=== PATIENT | male | born 1960 | race Two or more races ===

== ENCOUNTER 2024-03-05 12:44 | Inpatient (IN) | payer OTHER ==
[2024-03-05] MEDS ORDERED: NALOXONE 0.4 MG/ML 1 ML VIAL IV PRN (12:49)
[2024-03-05] MEDS: HEPARIN SODIUM 1,000 UN/ML (10ML VL) IV ONE ×2 (12:51→13:27)
[2024-03-05] MEDS: MORPHINE SULFATE 4 MG/ML SYRINGE IV STA (12:51)
[2024-03-05] MEDS: ONDANSETRON 4 MG/2 ML VIAL IVP STA (12:52)
--- NOTE | 2024-03-05 12:52 | ED ---
General Adult HPI - General Stated complaint: STEMI Time Seen by Provider: 03/05/24 12:45 Source: patient, EMS, RN notes reviewed, old records reviewed Limitations: no limitations - History of Present Illness Initial comments: 63yo male, presenting with prehospital EKG showing ST segment elevation in the inferior leads and and lateral precordial leads with ST segment depression. Prehospital activation of the [facility] was performed. The patient has previous history of IA and states that his pain is exactly the same. 10 out of 10 substernal pain and pressure. Patient has associated nausea vomiting. Review of Systems ROS Statement: Those systems with pertinent positive or pertinent negative responses have been documented in the HPI. ROS Other: All systems not noted in ROS Statement are negative. General Exam General appearance: in distress Head exam: Present: atraumatic, normocephalic Eye exam: Present: normal appearance, PERRL ENT exam: Present: normal exam Neck exam: Present: normal inspection. Absent: tenderness Respiratory exam: Present: normal lung sounds bilaterally, respiratory distress (tachypinic) Cardiovascular Exam: Present: regular rate, normal rhythm GI/Abdominal exam: Present: soft. Absent: distended, tenderness, guarding Extremities exam: Present: normal inspection, normal capillary refill Neurological exam: Present: alert Skin exam: Present: diaphoretic Medical Decision Making - Medical Decision Making Was pt. sent in by a medical professional or institution ([facility], [facility], urgent care, hospital, or intermediate...) When possible be specific @ -[No] Did you speak to anyone other than the patient for history (EMS, parent, family, police, friend...)? What history was obtained from this source @ -[No] Did you review nursing and triage notes (agree or disagree)? Why? @ -[I reviewed and agree with nursing and triage notes] Were old charts reviewed (outside hosp., previous admission, EMS record, old EKG, old radiological studies, urgent care reports/EKG's, intermediate records)? Report findings @ -[No old charts were reviewed] Differential Diagnosis (chest pain, altered mental status, abdominal pain women, abdominal pain men, vaginal bleeding, weakness, fever, dyspnea, syncope, headache, dizziness, GI bleed, back pain, seizure, CVA, palpatations, mental health, musculoskeletal)? @ -[not applicable] EKG interpreted by me (3pts min.). @EKG is showing a ventricular rate of 99, QRS duration 81, QTc 406 suspect underlying sinus rhythm with ST segment elevation consistent with acute IA. X-rays interpreted by me (1pt min.). @ -[None done] CT interpreted by me (1pt min.). @ -[None done] U/S interpreted by me (1pt. min.). @ -[None done] What testing was considered but not performed or refused? (CT, X-rays, U/S, labs)? Why? @ -[None] What meds were considered but not given or refused? Why? @ -[None] Did you discuss the management of the patient with other professionals (professionals i.e. DrClyde, PA, P[facility]/PULLER, lab, RT, psych nurse, director social welfare, furniture detailer, teacher, cash management officer, case worker)? Give summary @ -[No] Was smoking cessation discussed for >3mins.? @ -[No] Was critical care preformed (if so, how long)? @Yes, 35 minutes Were there social determinants of health that impacted care today? How? (Homelessness, low income, unemployed, alcoholism, drug addiction, transportation, low edu. Level, literacy, decrease access to med. care, senior living, rehab)? @ -[No] Was there de-escalation of care discussed even if they declined (Discuss DNR or withdrawal of care, Hospice)? DNR status @ -[No] What co-morbidities impacted this encounter? (DM, HTN, Smoking, COPD, CAD, Cancer, CVA, ARF, Chemo, Hep., AIDS, mental health diagnosis, sleep apnea, morbid obesity)? @CAD Was patient admitted / discharged? Hospital course, mention meds given and route, prescriptions, significant lab abnormalities, going to OR and other pertinent info. @63-year-old male with typical chest pain, ST segment elevated IA taken immediately to the [facility]. EKG, IV established. Patient given Lipitor, heparin, morphine. He had been given nitroglycerin and aspirin by paramedics. Taken immediately to the [facility] with Dr. Peace. Admitting Dr. Dr. Streeter. Undiagnosed new problem with uncertain prognosis? @ -[No] Drug Therapy requiring intensive monitoring for toxicity (Heparin, Nitro, Insulin, Cardizem)? @ -[No] Were any procedures done? @ -[No] Diagnosis/symptom? @ -STEMI Acute, or Chronic, or Acute on Chronic? @Acute Uncomplicated (without systemic symptoms) or Complicated (systemic symptoms)? @ -[default] Side effects of treatment? @ -[No] Exacerbation, Progression, or Severe Exacerbation? @ -[No] Poses a threat to life or bodily function? How? (Chest pain, USA, IA, pneumonia, PE, COPD, DKA, ARF, appy, cholecystitis, CVA, Diverticulitis, Homicidal, Suicidal, threat to staff... and all critical care pts) @ -[yes, STEMI with cardiogenic shock, ventricular arrhythmia Disposition Clinical Impression: STEMI (ST elevation myocardial infarction) Disposition: ADMITTED IP TO THIS HOSP Condition: Serious Is patient prescribed a controlled substance at d/c from ED?: No Referrals: None,Stated [Primary Care Provider] - 1-2 days
[2024-03-05] MEDS: ATORVASTATIN 80 MG TAB PO STA (13:01)
[2024-03-05] MEDS ORDERED: HEPARIN SODIUM 1,000 UN/ML (10ML VL) ONE (13:07)
[2024-03-05] MEDS ORDERED: fentaNYL (PF) 50 MCG/ML 2 ML AMP ONE (13:07)
[2024-03-05] MEDS: LIDOCAINE 1% INJ 10MG/ML (20 ML MDV) SQ ONE (13:10)
[2024-03-05] MEDS: SODIUM CHLORIDE 0.9% 500 ML 500 ML IV ONE (13:10)
[2024-03-05] MEDS: MIDAZOLAM 2 MG/2 ML VIAL IVP ONE (13:13)
[2024-03-05] MEDS: fentaNYL (PF) 50 MCG/ML 2 ML AMP IVP ONE (13:13)
[2024-03-05] MEDS ORDERED: TICAGRELOR 90 MG TAB ONE (13:22)
[2024-03-05] MEDS: TICAGRELOR 90 MG TAB PO ONE (13:25)
--- NOTE | 2024-03-05 13:49 | CC ---
CARDIAC CATHETERIZATION REPORT INDICATIONS: Acute inferior wall myocardial infarction. PROCEDURE NOTE: After obtaining informed consent, left heart catheterization, coronary angiogram are performed via the right femoral artery using standard Ayo catheters. The patient tolerated the procedure well without any obvious immediate complications. The patient received moderate conscious sedation. Total sedation time was 11 minutes. FINDINGS: 1. Hemodynamics: Left ventricular end-diastolic pressure is 28 to 30 mm. There is no significant gradient across the aortic valve. 2. Left Ventriculogram: Left ventriculogram was not performed. 3. Angiographic Data: a.Right coronary artery was engaged subselectively. There is mild nonobstructive disease noted proximally. Permit Specialist was going to obtain more selective images. Left main coronary artery is a normal-sized vessel and is free of stenosis. Divides into left anterior descending coronary artery and circumflex coronary arteries. LAD was previously stented extensively and the stents appear patent. Circumflex coronary artery is a large dominant vessel and gives off a large caliber OM branch that shows a 95% stenosis at its ostium, which is probably the vessel related to the acute inferoposterior wall myocardial infarction. CONCLUSIONS: Patent stent within the LAD, 95% stenosis involving the ostial portion of the OM branch. PLAN: The patient will undergo angioplasty with stent placement of the same by Dr. Rosario, the on-call machine adjuster leader case trim. MMODL / IJN: [id number] /
--- NOTE | 2024-03-05 13:53 | P.CRDCN ---
History of Present Illness History of present illness: HISTORY OF PRESENT ILLNESS: This is a 63-year-old male with a past medical history significant for coronary artery disease with previous stenting x 4, hypertension, hyperlipidemia, and borderline diabetes. Patient follows with a telecommunication tower technician in [place]. We have been asked to see the patient in consultation for STEMI. Patient examined at the bedside in the emergency room. Patient was brought to the hospital via EMS with a chief complaint of chest pain. The patient reports midsternal chest pain with radiation down his left arm. He also reports nausea and is having episodes of emesis during examination. He continues to report his pain /. The patient does report he has a history of stenting back in 2017. He states he had 2 stents placed at that time and then 2 weeks later he required an additional 2 stents to be placed. He does report that he had a cardiac catheterization performed last year but he did not require any intervention at that time. He is a non-smoker. EKG revealed ST elevation in inferior lateral leads with reciprocal changes. REVIEW OF SYSTEMS: At the time of my exam: CONSTITUTIONAL: Denies fever or chills. HEENT: Denies blurred vision, vision changes, or eye pain. Denies hemoptysis CARDIOVASCULAR: Denies chest pain. Denies orthopnea. Denies PND. Denies palpitations RESPIRATORY: Denies shortness of breath. GASTROINTESTINAL: Denies abdominal pain. Denies nausea or vomiting. HEMATOLOGIC: Denies bleeding disorders. GENITOURINARY: Denies any blood in urine. SKIN: Denies pruitis. Denies rash. PHYSICAL EXAM: VITAL SIGNS: Reviewed. GENERAL: Well-developed in no acute distress. HEENT: Head is normocephalic. Pupils are equal, round. Sclerae anicteric. Mucous membranes of the mouth are moist. Neck supple. No JVD or thyromegaly LUNGS: Respirations even and unlabored. Lungs essentially clear to auscultation bilaterally. HEART: Regular rate and rhythm. S1 and S2 heard. ABDOMEN: Soft. Nondistended. Nontender. EXTREMITIES: Normal range of motion. No clubbing or cyanosis. Peripheral pulses intact. No lower extremity edema NEUROLOGIC: Awake and alert. Oriented x 3. ASSESSMENT: Inferolateral STEMI Coronary artery disease with previous stenting x 4, most recently in 2017 Hypertension Hyperlipidemia Borderline diabetes, per patient PLAN: Patient given aspirin and heparin in the ER. Refused oral lipitor. Patients EKG with ST elevations in inferior lateral leads Recommend urgent cardiac catheterization. Patient is agreeable. Patient taken to the lab systems analyst in stable condition Obtain 2D echo post cardiac cath Patient started on aspirin, lipitor, losartan, and metoprolol Obtain lipid panel and hemoglobin A1c Further recommendations pending patient course Nurse practitioner note has been reviewed by physician. Signing provider agrees with the documented findings, assessment, and plan of care documented by LAWN SERVICE WORKER as a scribe. Past Medical History Additional Past Medical History / Comment(s): [place] History of Any Multi-Drug Resistant Organisms: None Reported Past Surgical History: Heart Catheterization With Stent Past Psychological History: No Psychological Hx Reported Smoking Status: Unknown if ever smoked Past Alcohol Use History: Unable to Obtain Past Drug Use History: Unable to Obtain Medications and Allergies Allergies Allergy/AdvReac Type Severity Reaction Status Date / Time acetaminophen [From Vicodin] AdvReac Unknown Verified 03/05/24 12:54 hydrocodone [From Vicodin] AdvReac Unknown Verified 03/05/24 12:54 Physical Exam Vitals: Vital Signs Temp Pulse Resp BP Pulse Ox 03/05/24 12:46 97.7 F 104 H 36 H 181/125 99 Intake and Output 03/04/24 03/05/24 03/05/24 22:59 06:59 14:59 Other: Weight 81.42 kg Results Current Medications Generic Name Dose Route Start Last Admin Trade Name Freq PRN Reason Stop Dose Admin Naloxone HCl 0.2 mg 03/05/24 12:49 Naloxone 0.4 Mg/Ml 1 Ml Vial IV Q2M PRN Opioid Reversal Intake and Output 03/04/24 03/05/24 03/05/24 22:59 06:59 14:59 Other: Weight 81.42 kg Patient Weight 03/06/24 06:59 Weight 81.42 kg
[2024-03-05] MEDS: HEPARIN SODIUM 1,000 UN/ML (10ML VL) IVP ONE (13:54)
--- NOTE | 2024-03-05 15:41 | P.HPIM ---
History of Present Illness 63-year-old male with history of coronary disease stents in the past came in with severe nausea vomiting 10 x 10 chest pain pressure-like sensation and patient is found to have ST elevations in the inferior lateral leads in the circumflex territory. Patient was taken to [facility] immediately. I evaluate the patient before he went to [facility] patient has severe nausea vomiting. Patient does have reciprocal changes in leads V1 to V4. REVIEW OF SYSTEMS: All other systems are negative except those mentioned in the HPI PHYSICAL EXAMINATION: GENERAL: The patient is alert and oriented x3, patient is in significant distress from about vomiting and chest pain well developed, well nourished. HEENT: Pupils are round and equally reacting to light. EOMI. No scleral icterus. No conjunctival pallor. Normocephalic, atraumatic. No pharyngeal erythema. No thyromegaly. CARDIOVASCULAR: S1 and S2 present. No murmurs, rubs, or gallops. PULMONARY: Chest is clear to auscultation, no wheezing or crackles. ABDOMEN: Soft, nontender, nondistended, normoactive bowel sounds. No palpable organomegaly. MUSCULOSKELETAL: No joint swelling or deformity. EXTREMITIES: No cyanosis, clubbing, or pedal edema. NEUROLOGICAL: Gross neurological examination did not reveal any focal deficits. SKIN: No rashes. Assessment and plan -Inferolateral ST elevation myocardial infarction: Patient was heparinized and is going for [facility] patient will be on beta-giacomo, statins -Coronary disease with stents in the past -Hyperlipidemia -Hypertension -Borderline diabetes mellitus will obtain hemoglobin A1c DVT prophylaxis: On heparin and antiplatelet medications at this time Past Medical History Additional Past Medical History / Comment(s): [place] History of Any Multi-Drug Resistant Organisms: None Reported Past Surgical History: Heart Catheterization With Stent Past Psychological History: No Psychological Hx Reported Smoking Status: Unknown if ever smoked Past Alcohol Use History: Unable to Obtain Past Drug Use History: Unable to Obtain Medications and Allergies Allergies Allergy/AdvReac Type Severity Reaction Status Date / Time acetaminophen [From Vicodin] AdvReac Unknown Verified 03/05/24 12:54 hydrocodone [From Vicodin] AdvReac Unknown Verified 03/05/24 12:54 Physical Exam Vitals: Vital Signs Temp Pulse Resp BP Pulse Ox 03/05/24 12:46 97.7 F 104 H 36 H 181/125 99 Intake and Output 03/05/24 03/05/2403/05/24 06:59 14:59 22:59 Other: Weight 81.42 kg
[2024-03-05] MEDS ORDERED: NITROGLYCERIN SL TABS 0.4 MG TAB SUBLINGUAL PRN (15:42)
[2024-03-05] MEDS ORDERED: ATROPINE SULFATE 0.1 MG/ML 10ML SYRINGE IV PRN (15:42)
[2024-03-05] MEDS ORDERED: MAG HYDROX/AL HYDROX/SIMETH 30 ML CUP PO PRN (15:42)
[2024-03-05] MEDS ORDERED: RX INFO: IV CONTRAST WAS GIVEN 1 EACH MISC MISCELLANE PRN (15:42)
--- NOTE | 2024-03-05 15:42 | P.PRCINT ---
Percutaneous Coronary Int. - Percutaneous Coronary Intervention Percutaneous Coronary Intervention: PROCEDURES PERFORMED: Left coronary angiography, PTCA mid circumflex into OM1 with a 4.0 NC balloon, Penumbra aspiration thrombectomy of circumflex, IVUS circumflex INDICATION: STEMI CONSENT:I have discussed the risks, benefits and alternative therapies for the above-mentioned procedure and for both sedation/analgesia as well as necessary blood product administration, if indicated, as they pertain to this patient. The patient has indicated understanding and acceptance of the risks and procedures discussed. PROCEDURE: After the risks, benefits and alternatives of the above mentioned procedure explained in detail with the patient, informed consent was obtained. Patient was taken to the catheterization lab and prepped and draped in usual fashion. A 6Fr sheath had previously been placed in the right femoral artery. Diagnostic images were obtained. The decision was made to perform PCI of the circumflex. Heparin was given. A 6FR CLS 3.5 guide was used to engage the left main. A 0.014 BMW wire was advanced into the distal OM1 branch. There was thrombus noted in the proximal portion of the stent and therefore Penumbra aspiration thrombectomy was performed for 2 passes with much improvement in flow. IVUS showed well expanded stent other than the proximal edge of the stent being mildly underexpanded. On further discussion with patient, he has not been taking any of his medications including any antiplatelet and instent thrombosis appears mainly related to medical noncompliance. The proximal portion of the stent was however post expanded with a 4.0 NC balloon. Final angiograms were performed. Pre intervention there was 99% stenosis and GENESIS 1 flow and post intervention there was GENESIS 3 flow with < 10% stenosis. The femoral angiogram showed low stick and therefore sheath left in place to be pulled at a later time. The patient tolerated the procedure well. Patient was transported back to the post catheterization holding area in stable condition. Conscious Sedation: Patient was monitored under the direct supervision of myself for conscious sedation using Versed and fentanyl for a total duration of 42 minutes HEMODYNAMICS: Ao: 123/81 SELECTIVE CORONARY ARTERIOGRAPHY: LEFT MAIN: The left main is a large caliber vessel which bifurcates into the LAD and circumflex. There is no significant stenosis. LEFT ANTERIOR DESCENDING CORONARY ARTERY: LAD is a large caliber vessel which wraps around to the apex. There is a long area of stent with mild 20-30% stenosis. LEFT CIRCUMFLEX CORONARY ARTERY: Left circumflex is a large caliber vessel with a proximal circumflex stent extending into a large caliber OM1 branch. A smaller OM2 branch is jailed across the stent however without any significant impingement. There is a 99% stenosis just after OM2 in the previously placed stent.. RIGHT CORONARY ARTERY: See diagnostic report FINAL IMPRESSION: 1. CAD as described above including 99% mid circumflex stenosis 2. S/p PTCA mid circumflex into OM1 with a 4.0 NC balloon, Penumbra aspiration thrombectomy of circumflex 3. Instent thrombosis most likely related to medication noncompliance, not taking any antiplatelets PLAN: 1. Aggressive risk factor modification per most recent ACC/AHA guidelines. 2. Continue dual antiplatelets with aspirin and Brillinta for 12 months.
[2024-03-05 16:35] LABS: Basophils # (A) 0.1 k/uL (0-0.2); Basophils % (A) 1 %; Eosinophils # (A) 0.1 k/uL (0-0.7); Eosinophils % (A) 1 %; HCT 49.2 % (39.0-53.0); HGB 16.9 gm/dL (13.0-17.5); Lymphocytes # (A) 0.7 k/uL (1.0-4.8); Lymphocytes % (A) 7 %; MCH 30.6 pg (25.0-35.0); MCHC 34.4 g/dL (31.0-37.0); MCV 89.1 fL (80.0-100.0); Mean Platelet Volume 7.8; Monocytes # (A) 0.5 k/uL (0-1.0); Monocytes % (A) 5 %; Neutrophils # (A) 8.1 k/uL (1.3-7.7); Neutrophils % (A) 84 %; Platelet Count 212 k/uL (150-450); RBC 5.52 m/uL (4.30-5.90); RDW 13.4 % (11.5-15.5); WBC 9.7 k/uL (3.8-10.6)
[2024-03-05 16:36] LABS: INR 1.1 (<1.2); Prothrombin Time 11.8 sec (10.0-12.5)
[2024-03-05 16:43] LABS: Partial Thromboplastin Time 139.2 sec (22.0-30.0)
[2024-03-05 17:36] LABS: ALT 49 U/L (4-49); AST 55 U/L (17-59); African American GFR (CKD) >90 (>60 ml/min/1.73 sqM); Alkaline Phosphatase 81 U/L (38-126); Anion Gap 7 mmol/L; Blood Urea Nitrogen 19 mg/dL (9-20); Calcium 8.9 mg/dL (8.4-10.2); Carbon Dioxide 23 mmol/L (22-30); Chloride 104 mmol/L (98-107); Glucose 231 mg/dL (74-99); Magnesium 2.1 mg/dL (1.6-2.3); Non-African American GFR(CKD) 82 (>60 ml/min/1.73 sqM); Potassium 4.7 mmol/L (3.5-5.1); Sodium 134 mmol/L (137-145); Total Protein 6.6 g/dL (6.3-8.2)
[2024-03-05] MEDS: SODIUM CHLORIDE 0.9% 1,000 ML in EMPTY BAG 1 BAG IV SCH (17:45)
[2024-03-05] MEDS: hydrALAZINE HCL 20 MG/ML 1 ML VIAL IVP STA (18:23)
[2024-03-05 19:58] LABS: Glucose,Whole Blood 160 mg/dL (70-110)
--- NOTE | 2024-03-05 20:19 | CT ---
EXAMINATION TYPE: CODE STROKE: CT brain wo contr CT DLP: 1138.9 mGycm, Automated exposure control for dose reduction was used. DATE OF EXAM: 03/05/2024 8:01 PM COMPARISON: None.. CLINICAL INDICATION:Male, 63 years old with history of Neuro deficit, acute, stroke suspected, Neuro deficit, acute, stroke suspected. aphagia and rt sided weakness pt was stemi earlier in the day. TECHNIQUE: Brain: Axial CT images of the brain were obtained with coronal and sagittal reformats created and rev iewed. Contrast used: None. Oral contrast used: None. FINDINGS: Extra-axial spaces: No abnormal extra-axial fluid collections. Basilar cisterns are patent. Ventricular system: Ventricles appear dilated in proportion to the degree of cerebral atrophy. Cerebral parenchyma: No increased attenuation to suggest acute intraparenchymal hemorrhage. The gra y-white matter interface appears maintained. Mild generalized brain atrophy. Scattered hypoattenuat ing areas are seen within the cerebral white matter, nonspecific but most often seen with chronic jac rovascular ischemic changes; mild in degree. Cerebellum: No acute abnormality. Mass effect: No evidence of mass effect or midline shift. Intracranial vasculature: Atherosclerotic mild calcifications of the larger arteries near the skull b ase. Soft tissues: No acute or concerning abnormality. Visualized orbits: Orbital contents appear grossly intact. Calvarium/osseous structures: No evidence of calvarial fracture. Paranasal sinuses and mastoid air cells: Mild scattered paranasal sinus mucosal thickening. MRI is more sensitive for detecting acute processes such as infarct, and may be considered if clinica lly warranted. IMPRESSION: No acute intracranial CT abnormality.
--- NOTE | 2024-03-05 21:06 | CT ---
EXAMINATION TYPE: CODE STROKE: CTA head neck DATE OF EXAM: 03/05/2024 8:21 PM COMPARISON: Immediately prior CT brain. CLINICAL INDICATION:Male, 63 years old with history of Neuro deficit, acute, stroke suspected; PHH, N euro deficit, acute, stroke suspected. aphagia and rt sided weakness pt was stemi earlier in the day. TECHNIQUE: Axially acquired helical CT angiogram of the head and neck was obtained with contrast. Axi al images are supplemented with 3D reconstructions which [facility] NASCET criteria used. Contrast used: 65ml mL of Isovue 370 with IV Contrast, Oral contrast used: None. CT DLP: 694.4 mGycm, Automated exposure control for dose reduction was used. FINDINGS: CTA Neck: Aortic arch is patent without significant atherosclerotic disease or dissection. There is a bovine ar ch configuration. Mild atherosclerotic calcification in the trunk and proximal left common carotid wi thout significant stenosis. Both CCAs appear patent. There is mild mostly calcified atherosclerotic plaque at the carotid bifurca tions/proximal ICAs, without significant stenosis. Right ICA is then normally patent to the skull bas e. Proximal to mid left ICA demonstrates focal calcific plaque with approximately 30% diameter stenos is. Vessel is then patent to the skull base. Origins of the vertebral arteries show no significant disease or stenosis. Left vertebral artery is d ominant. Both appear normally patent to the skull base. Other: No acute soft tissue neck abnormality. Left thyroid lobe not seen, may be resected. Mild degen erative changes of the cervical spine, greatest at C5-C6 where disc marginal osteophytes cause mild-t o-moderate canal and neural foraminal stenoses. An acute osseous abnormality is not identified. Included lung apices show no acute abnormality. CTA Head: Intracranial vertebral arteries are patent. Cerebellar arteries are grossly unremarkable as seen. Bas ilar artery is normal in course and caliber. Basilar bifurcation is patent and there is no evidence o f basilar tip aneurysm. Visualized proximal tow boat captain are patent. There seems to be a posterior communicat ing artery on the left. There are some calcifications of the cavernous portions of the ICAs without significant stenosis. Supraclinoid ICAs, bifurcations, ACAs, MCAs appear patent. Anterior communicating artery appears pres ent without regional aneurysm. The left HAKAN appears relatively smaller than the right. No intracranial large vessel occlusion, hemodynamically significant stenosis, aneurysm, dissection, o r arteriovenous malformation is shown. The dural venous sinuses appear grossly patent without evidence of thrombosis. Other: Please refer to same-day CT head report.. IMPRESSION: CTA neck: * Patent neck CTA. * Mild atherosclerotic disease at the carotid bifurcations/proximal ICAs, without hemodynamically si gnificant stenosis. * No evidence of dissection or pseudoaneurysm CTA head: * Patent head CTA. * No intracranial large vessel occlusion, significant stenosis, or sizable aneurysm detected in the limits of CTA.
[2024-03-05] MEDS: ATORVASTATIN 80 MG TAB PO SCH (21:16)
[2024-03-05] MEDS: METOPROLOL TARTRATE 25 MG TAB PO SCH (21:16)
[2024-03-05] MEDS: TICAGRELOR 90 MG TAB PO SCH (21:16)
[2024-03-05] MEDS: ZOLPIDEM 5 MG TAB PO PRN (21:16)
[2024-03-06 03:25] LABS: Chol/HDL Ratio 4.26 Ratio; LDL Cholesterol,Calculated 176.2 mg/dL (0.0-131.0)
[2024-03-06 04:58] LABS: Basophils # (A) 0.1 k/uL (0-0.2); Basophils % (A) 1 %; Eosinophils # (A) 0.1 k/uL (0-0.7); Eosinophils % (A) 2 %; HCT 49.1 % (39.0-53.0); Lymphocytes # (A) 0.9 k/uL (1.0-4.8); Lymphocytes % (A) 12 %; MCH 29.8 pg (25.0-35.0); MCHC 32.6 g/dL (31.0-37.0); MCV 91.4 fL (80.0-100.0); Mean Platelet Volume 7.6; Monocytes # (A) 0.6 k/uL (0-1.0); Monocytes % (A) 8 %; Neutrophils # (A) 5.5 k/uL (1.3-7.7); Neutrophils % (A) 75 %; Platelet Count 202 k/uL (150-450); RBC 5.37 m/uL (4.30-5.90); RDW 13.4 % (11.5-15.5); WBC 7.3 k/uL (3.8-10.6)
[2024-03-06 05:14] LABS: African American GFR (CKD) >90 (>60 ml/min/1.73 sqM); Anion Gap 6 mmol/L; Blood Urea Nitrogen 15 mg/dL (9-20); Carbon Dioxide 19 mmol/L (22-30); Chloride 109 mmol/L (98-107); Glucose 159 mg/dL (74-99); Non-African American GFR(CKD) >90 (>60 ml/min/1.73 sqM); Potassium 4.3 mmol/L (3.5-5.1); Sodium 134 mmol/L (137-145)
[2024-03-06] MEDS: LOSARTAN 25 MG TAB PO SCH (09:24)
[2024-03-06] MEDS: ASPIRIN 81 MG PO SCH (09:24)
--- NOTE | 2024-03-06 09:54 | CA ---
Transthoracic Echo Report Name: Randy Brasher Age: 63 Gender: M : 1960 Exam Date: 03/05/2024 15:09 Exam Location: [facility] Ht (in): 67 Wt (lb): 179 Ordering Physician: Kalie Coronado Attending/Referring Phys: [id number], [facility] Shani Mota RDCS Procedure CPT: Indications: stemi Cardiac Hx: Technical Quality: Technically difficult study Contrast 1: Definity Total Dose (mL): 2 Contrast 2: Total Dose (mL): MEASUREMENTS (Male / Female) Normal Values 2D ECHO LV Diastolic Volume MOD BP 75.2 cm??? 67 - 155 / 56 - 104 cm??? LV Systolic Volume MOD BP 30.9 cm??? 22 - 58 / 19 - 49 cm??? LV Ejection Fraction MOD BP 58.9 % >= 55 % LV Cardiac Index MOD BP 1748.8 cm???/min???m??? LV Diastolic Volume MOD 4C 76.7 cm??? LV Systolic Volume MOD 4C 33.1 cm??? LV Ejection Fraction MOD 4C 56.9 % LV Cardiac Index MOD 4C 1719.7 cm???/min???m??? LV Diastolic Length 4C 8.1 cm LV Systolic Length 4C 7.3 cm LV Diastolic Volume MOD 2C 70.8 cm??? LV Systolic Volume MOD 2C 28.0 cm??? LV Ejection Fraction MOD 2C 60.4 % LV Cardiac Index MOD 2C 1686.8 cm???/min???m??? LV Diastolic Length 2C 8.4 cm LV Systolic Length 2C 7.1 cm LA Volume 26.7 cm??? 18 - 58 / 22 - 52 cm??? LA Volume Index 13.5 cm???/m??? 16 - 28 cm???/m??? DOPPLER AV Peak Velocity 108.3 cm/s AV Peak Gradient 4.7 mmHg AV Mean Velocity 78.5 cm/s AV Mean Gradient 2.7 mmHg AV Velocity Time Integral 21.4 cm LVOT Peak Velocity 94.7 cm/s LVOT Peak Gradient 3.6 mmHg LVOT Velocity Time Integral 16.4 cm MV Area PHT 2.8 cm??? Mitral E Point Velocity 53.3 cm/s Mitral A Point Velocity 65.4 cm/s Mitral E to A Ratio 0.8 MV Deceleration Time 269.9 ms FINDINGS Left Ventricle Left ventricular ejection fraction is estimated at 55-60 %. Left ventricular cavity size normal. Left ventricular wall thickness normal. No obvious regional wall motion abnormalities. Right Ventricle Right ventricle not well visualized. Right Atrium Right atrium not well visualized. Left Atrium Left atrium not well visualized. Mitral Valve Structurally normal mitral valve. No mitral stenosis, regurgitation or prolapse. Aortic Valve Aortic valve not well visualized. No aortic valve stenosis or regurgitation. Tricuspid Valve Structurally normal tricuspid valve. No tricuspid stenosis. No tricuspid regurgitation. Pulmonic Valve Pulmonic valve not well visualized. Pericardium No pericardial effusion. Aorta Aortic root and proximal ascending aorta not well visualized. CONCLUSIONS Left ventricular ejection fraction 55-60% No mitral regurgitation No tricuspid regurgitation No pericardial effusion Previewed by: Dr. Cem Rosario DO (Electronically Signed) Final Date: 06 March 2024 09:52
--- NOTE | 2024-03-06 13:36 | P.PN ---
Subjective March 06, 2024 Patient underwent cardiac catheterization found to have stenosis of circumflex 99% which was stented and patient also has in-stent stenosis due to noncompliance with his medications. Extensive counseling was again provided regarding this a code stroke was called although there is no focal neurological deficits anyway patient underwent a stroke workup with CT of the head and CT angio of the head and neck and there is no evidence of stroke at that time. Patient is mildly hyponatremic echocardiogram is being obtained. Patient does not have any chest pain at this time March 07, 2024 63-year-old male with history of coronary disease stents in the past came in with severe nausea vomiting 10 x 10 chest pain pressure-like sensation and patient is found to have ST elevations in the inferior lateral leads in the circumflex territory. Patient was taken to [facility] immediately. I evaluate the patient before he went to [facility] patient has severe nausea vomiting. Patient does have reciprocal changes in leads V1 to V4. REVIEW OF SYSTEMS: All other systems are negative except those mentioned in the HPI PHYSICAL EXAMINATION: GENERAL: The patient is alert and oriented x3, patient is in significant distress from about vomiting and chest pain well developed, well nourished. HEENT: Pupils are round and equally reacting to light. EOMI. No scleral icterus. No conjunctival pallor. Normocephalic, atraumatic. No pharyngeal erythema. No thyromegaly. CARDIOVASCULAR: S1 and S2 present. No murmurs, rubs, or gallops. PULMONARY: Chest is clear to auscultation, no wheezing or crackles. ABDOMEN: Soft, nontender, nondistended, normoactive bowel sounds. No palpable organomegaly. MUSCULOSKELETAL: No joint swelling or deformity. EXTREMITIES: No cyanosis, clubbing, or pedal edema. NEUROLOGICAL: Gross neurological examination did not reveal any focal deficits. SKIN: No rashes. Assessment and plan -Inferolateral ST elevation myocardial infarction: Status post PTCA circumflex and there is in-stent stenosis counseling regarding compliance with medications was provided. Patient is otherwise clinically doing well -Code stroke, CVA ruled out no evidence of CVA -Coronary disease with stents in the past -Hyperlipidemia -Hypertension -Borderline diabetes mellitus hemoglobin A1c is 10 patient will be started on metformin may benefit from Jardiance DVT prophylaxis: On heparin and antiplatelet, Objective - Vital Signs Vital signs: Vital Signs Temp 98.0 F 03/06/24 08:00 Pulse 70 03/06/24 09:00 Resp 20 03/06/24 09:00 BP 113/75 03/06/24 09:00 Pulse Ox 100 03/06/24 09:00 FiO2 Intake & Output 03/05/24 03/06/24 03/06/24 18:59 06:59 18:59 Intake Total 542 1410 80 Output Total 600 2150 Balance -58 -740 80 Weight 81.42 kg 87.3 kg Intake: IV 320 960 80 Sodium Chloride 0.9% 1, 320 960 80 000 ml In Empty Bag 1 bag @ 1 ML/KG/HR 81.42 mls/ hr IV .[id number] [facility] Rx#: [id number] Oral 222 450 Output: Urine 600 2150 Other: Voiding Method Urinal Urinal Toilet # Voids 0 0 1 ABP, PAP, CO, CI - Last Documented Arterial Blood Pressure 169/94 - Labs CBC & Chem 7: 03/06/24 04:17 03/06/24 04:17 Labs: Abnormal Lab Results - Last 24 Hours (Table) 03/05/24 03/05/24 03/05/24 Range/Units 16:10 16:10 16:10 Neutrophils # 8.1 H (1.3-7.7) k/uL Lymphocytes # 0.7 L (1.0-4.8) k/uL APTT 139.2 H* (22.0-30.0) sec Sodium 134 L (137-145) mmol/L Chloride (98-107) mmol/L Carbon Dioxide (22-30) mmol/L Glucose 231 H (74-99) mg/dL POC Glucose (mg/dL) (70-110) mg/dL Hemoglobin A1c (<=6.0) % Troponin I (0.000-0.034) ng/mL Cholesterol (0.00-200.00) mg/dL LDL Cholesterol, Calc (0.0-131.0) mg/dL 03/05/24 03/05/24 03/05/24 Range/Units 16:10 16:10 16:10 Neutrophils # (1.3-7.7) k/uL Lymphocytes # (1.0-4.8) k/uL APTT (22.0-30.0) sec Sodium (137-145) mmol/L Chloride (98-107) mmol/L Carbon Dioxide (22-30) mmol/L Glucose (74-99) mg/dL POC Glucose (mg/dL) (70-110) mg/dL Hemoglobin A1c 10.0 H (<=6.0) % Troponin I 1.570 H* (0.000-0.034) ng/mL Cholesterol 245.00 H (0.00-200.00) mg/dL LDL Cholesterol, Calc 176.2 H (0.0-131.0) mg/dL 03/05/24 03/06/24 03/06/24 Range/Units 19:39 04:17 04:17 Neutrophils # (1.3-7.7) k/uL Lymphocytes # 0.9 L (1.0-4.8) k/uL APTT (22.0-30.0) sec Sodium 134 L (137-145) mmol/L Chloride 109 H (98-107) mmol/L Carbon Dioxide 19 L (22-30) mmol/L Glucose 159 H (74-99) mg/dL POC Glucose (mg/dL) 160 H (70-110) mg/dL Hemoglobin A1c (<=6.0) % Troponin I (0.000-0.034) ng/mL Cholesterol (0.00-200.00) mg/dL LDL Cholesterol, Calc (0.0-131.0) mg/dL
[2024-03-06 13:41] VITALS: BMI 30.1
--- NOTE | 2024-03-06 14:23 | P.CNNES ---
History of Present Illness Consult date: 03/06/24 Requesting physician: Ladonna Soria Reason for Consult: stroke like symptoms-resolved History of Present Illness: Patient is a 63-year-old right-handed male with history of hypertension, borderline diabetes, hyperlipidemia, stopped taking all medication couple years ago, came to the hospital by ambulance yesterday at 12:44 PM for acute onset of chest pain. As per EMS flowsheet when they arrived, found patient laying on the ground screaming in pain, 10/10 chest pain that started 1 hour prior to calling 911. Patient does have a history of prior UT in 2017. Patient was alert and orient x 4. Denied any shortness of breath or abdominal pain. Patient had about 1 bout of vomiting prior to EMS arrival. Patient's skin was warm and diaphoretic. Patient's vitals at the scene was blood pressure 154/122, pulse rate 104 respiration 26 saturation 96%. Vital signs on arrival blood pressure 181/125, which came down to 159/89, pulse rate 104 temperature 97.7. Blood test shows normal CBC, normal INR. Sodium 134 potassium 4.7, normal renal functions and hepatic panel. Troponin was elevated 1.57. Patient underwent left coronary angiography, PTCA mid circumflex into OM1 with a 4.0 NC balloon, penumbra aspiration thrombectomy of circumflex, IVUS circumflex. Patient was started on Brilinta. Patient was brought to the ICU in stable condition. He was laying flat. After this sheath was removed, and when he lifted his head up, he started having some neurological symptoms. He started with anxiety symptoms, then started to aphasia, could not come up with the words, could not carry on conversation, and the words would not come out right. And some right-sided weakness and visual disturbance. Code stroke was activated at 7:41 PM with NIH stroke scale of 5. Per nursing report, at that time his symptoms started with patient feeling nervous and had cramping in his left calf. He was tremoring. His speech began to change and had some expressive aphasia with some vision loss. He had weak juice tester on the right side and then was strong and equal. Stroke team discussed case with Dr. Wagner, who recommended medical management. CT head was performed, which revealed no acute intracranial abnormality. I personally reviewed CT head, agree with the findings. CTA showed no significant stenosis. Patient states that his symptoms started much improving while he was in the CT scanner and the symptoms resolved in about 20 to 30 minutes. At present he feels back to normal. Patient states he has history of TIA couple years ago when he was at [facility] when he could not talk. His symptoms lasted for short while and then resolved. Patient also has history of an UT in 2017. He states he has history of hyperlipidemia, borderline diabetes and hypertension and used to take aspirin and some other medication but he stopped taking all medications including aspirin "couple years" ago. He has never smoked. Review of Systems All review of system reviewed, unremarkable except the pertinent positive and negatives as mentioned in HPI. Past Medical History Past Medical History: Coronary Artery Disease (CAD), Chest Pain / Angina, GERD/Reflux, Hyperlipidemia, Hypertension, Myocardial Infarction (UT) Additional Past Medical History / Comment(s): UT with 4 stents Last Myocardial Infarction Date:: 05/2017 History of Any Multi-Drug Resistant Organisms: None Reported Past Surgical History: Appendectomy, Heart Catheterization With Stent Date of Last Stent Placement:: 05/2017 Past Psychological History: No Psychological Hx Reported Smoking Status: Never smoker Past Alcohol Use History: Unable to Obtain Past Drug Use History: Unable to Obtain Medications and Allergies Home Medications Medication Instructions Recorded Confirmed Type No Known Home Medications 03/05/24 03/05/24 History Allergies Allergy/AdvReac Type Severity Reaction Status Date / Time acetaminophen [From Vicodin] AdvReac Unknown Verified 03/05/24 17:05 hydrocodone [From Vicodin] AdvReac Unknown Verified 03/05/24 17:05 Physical Examination - Vital Signs Vital Signs: Vital Signs Temp Pulse Resp BP Pulse Ox 03/06/24 09:00 70 20 113/75 100 03/06/24 08:00 98.0 F 71 17 127/94 100 03/06/24 07:00 88 14 137/78 96 03/06/24 06:00 63 16 132/75 96 03/06/24 05:00 65 15 119/78 96 03/06/24 04:00 65 8 L 109/79 97 03/06/24 03:00 64 16 118/82 97 03/06/24 02:00 74 14 111/67 94 L 03/06/24 01:00 75 14 130/77 95 03/06/24 00:00 98.4 F 83 18 133/77 94 L 03/05/24 23:00 80 19 143/78 95 03/05/24 22:00 82 16 142/81 94 L 03/05/24 21:00 91 17 144/89 95 03/05/24 20:45 88 16 154/88 97 03/05/24 20:30 84 23 144/83 97 03/05/24 20:15 84 36 H 150/80 97 03/05/24 20:00 98.0 F 148/97 03/05/24 19:45 148/97 03/05/24 19:43 98.0 F 89 24 150/80 98 03/05/24 19:30 80 11 L 126/71 100 03/05/24 19:15 89 18 153/99 100 03/05/24 19:00 87 15 120/84 99 03/05/24 18:45 77 12 105/72 100 03/05/24 18:30 90 19 124/91 99 03/05/24 18:15 80 11 L 139/94 97 03/05/24 18:00 70 8 L 180/117 97 03/05/24 17:45 70 9 L 180/117 96 03/05/24 17:30 68 8 L 165/105 97 03/05/24 17:15 66 7 L 137/91 97 03/05/24 17:00 66 6 L 141/86 97 03/05/24 16:45 70 11 L 141/86 97 03/05/24 16:30 78 4 L 134/96 96 03/05/24 16:00 73 15 154/112 99 03/05/24 15:30 80 14 142/103 95 03/05/24 15:00 76 17 150/105 96 03/05/24 14:30 82 16 159/89 96 03/05/24 14:16 98.6 F 75 12 03/05/24 12:46 97.7 F 104 H 36 H 181/125 99 Intake and Output 03/05/24 03/06/24 03/06/24 22:59 06:59 14:59 Intake Total 1312 640 80 Output Total 950 1800 Balance 362 -1160 80 Intake: IV 640 640 80 Sodium Chloride 0.9% 1, 640 640 80 000 ml In Empty Bag 1 bag @ 1 ML/KG/HR 81.42 mls/ hr IV .[id number] [facility] Rx#: [id number] Oral 672 Output: Urine 950 1800 Other: Voiding Method Urinal Urinal Toilet # Voids 0 1 Weight 81.42 kg 87.3 kg Patient is a young looking elderly male, very pleasant, in no acute distress. Patient is alert awake oriented to time place and person. Speech and language functions are normal. Patient can name and repeat very well. No aphasia or dysarthria. Attention, concentration and fund of knowledge is adequate. On cranial nerve examination, pupils are equal, round and reacting to light, visual mejia are full on confrontation, with no neglect on double simultaneous stimulation. Extraocular muscles are intact with no nystagmus. Face is symmetric, tongue protrudes to the midline. Palatal elevation and sensation normal, hearing and shoulder shrug normal, facial sensation normal. On muscle strength testing, there is no pronator drift and the strength is normal in arms and legs distally and proximally. Deep tendon reflexes are symmetric 1+ all over and plantars downgoing. Sensory to touch is equal with no neglect on double simultaneous stimulation. Cerebellar function showed no ataxia for ymmpta-te-emxy testing. No dysdiadochokinesia. No ataxia for rzmt-pc-abog testing on either side. Tone and bulk of muscles normal. Gait deferred.. On general examination, there is no carotid bruit or murmur, S1-S2 audible. Chest is clear on consultation. Abdomen is soft nontender. No organomegaly, bowel sounds present. Peripheral pulses are present. No peripheral edema. Results - Laboratory Findings CBC and BMP: 03/06/24 04:17 03/06/24 04:17 Abnormal Lab Findings: Abnormal Labs 03/05/24 03/05/24 03/05/24 16:10 16:10 16:10 Neutrophils # 8.1 H Lymphocytes # 0.7 L APTT 139.2 H* Sodium 134 L Chloride Carbon Dioxide Glucose 231 H POC Glucose (mg/dL) Hemoglobin A1c Troponin I Cholesterol LDL Cholesterol, Calc 03/05/24 03/05/24 03/05/24 16:10 16:10 16:10 Neutrophils # Lymphocytes # APTT Sodium Chloride Carbon Dioxide Glucose POC Glucose (mg/dL) Hemoglobin A1c 10.0 H Troponin I 1.570 H* Cholesterol 245.00 H LDL Cholesterol, Calc 176.2 H 03/05/24 03/06/24 03/06/24 19:39 04:17 04:17 Neutrophils # Lymphocytes # 0.9 L APTT Sodium 134 L Chloride 109 H Carbon Dioxide 19 L Glucose 159 H POC Glucose (mg/dL) 160 H Hemoglobin A1c Troponin I Cholesterol LDL Cholesterol, Calc Assessment and Plan Assessment: * Probable TIA manifesting with aphasia, blurred vision and right-sided weakness, that resolved within 20 to 30 minutes. His symptoms have completely resolved, and current NIH stroke scale is 0. * Acute [place] status post balloon angioplasty, and aspiration thrombectomy of circumflex. * History of TIA 2 years ago. * Hypertension * Hyperlipidemia * Diabetes, newly diagnosed * Coronary artery disease * Medication noncompliance. Patient stopped taking all medications "couple years ago". Plan: Patient symptoms have resolved. No clinical indication for MRI. Patient needs aggressive control of stroke risk factors and to start antiplatelet medications. 2-D echo revealed left ventricular EF 55 to 60%. Left ventricular cavity size is normal. Normal left ventricular wall thickness. No obvious regional wall motion abnormalities. Left and right atrium not well-visualized. No MR. CTA head and neck showed: Patent head and neck CTA. Mild atherosclerotic disease at the carotid bifurcation/proximal ICA without hemodynamically significant stenosis. No dissection or pseudoaneurysm. No vascular occlusion or stenosis. Fasting a.m. lipid panel cholesterol 245, LDL 176, HDL 57, triglycerides 56. Agree with starting high intensity statins with Lipitor 80 mg. Hemoglobin A1c 10.0. Recommend optimize control of diabetes to target A1c <7.0. Optimize control of blood pressure. Patient has stopped taking aspirin couple years ago. Patient started on aspirin 81 mg and Brilinta 90 mg twice daily. Duration of dual antiplatelets as per c ardiology. However he needs to stay on aspirin 81 mg indefinitely. Neuro checks every 2 hours. Telemetry monitoring rule out any arrhythmia PT, OT, speech therapy DVT prophylaxis: Heparin 5000 units subcu every 12 hours Neurology will continue to follow. Thank you for the consult. Time with Patient: Greater than 30
[2024-03-06] MEDS: HEPARIN SODIUM,PORCINE 5,000 UNIT/ML 1 ML VIAL SQ SCH (15:19)
--- NOTE | 2024-03-06 21:22 | PN ---
PROGRESS NOTE SUBJECTIVE: This is a 63-year-old gentleman who was admitted to hospital with acute inferoposterior wall myocardial infarction and underwent emergent cardiac catheterization and angioplasty of [place] circumflex coronary artery. This morning the patient is doing well and is free of chest pain. His troponin on his initial presentation was elevated at 1.5 and they are noted on subsequent troponins. Lipid profile shows that the total cholesterol is 245, LDL is 176. OBJECTIVE: GENERAL: On exam comfortable at rest. VITAL SIGNS: Stable. CHEST: Reveals good air entry bilaterally. HEART: Reveals first and second heart sounds. No gallop, no murmur. ABDOMEN: Soft. EXTREMITIES: Did not reveal any edema. Peripheral pulses are felt. : Groin is free of bleeding, bruit, or hematoma. MEDICATIONS: The patient is currently on, 1. Aspirin. 2. Lipitor. 3. Lopressor. 4. Brilinta. ASSESSMENT: Acute inferoposterior wall myocardial infarction. PLAN: The patient is status post cardiac catheterization, angioplasty of [place] circumflex coronary artery. He is doing well and he had CT scans of the brain and head which were fairly unremarkable. The patient yesterday had neurological symptoms and a code stroke was called. MMODL / IJN: [id number] /
--- NOTE | 2024-03-07 13:04 | PN ---
PROGRESS NOTE SUBJECTIVE: A 63-year-old gentleman, who was admitted to hospital with acute inferoposterior wall myocardial infarction, underwent cardiac catheterization and angioplasty of circumflex coronary artery. He is currently free of symptoms. He is on aspirin, Lipitor, Cozaar, Lopressor, and Brilinta. OBJECTIVE: GENERAL: Comfortable at rest. VITAL SIGNS: Stable. CHEST: Reveals good air entry bilaterally. HEART: Reveals first and second heart sounds. No gallop. No murmur. ABDOMEN: Soft, nontender. EXTREMITIES: Did not reveal any edema. Peripheral pulses are felt. LABORATORY DATA: Labs show that the hemoglobin is 16, platelet count is 202, potassium is 4.3, creatinine is 0.8. ASSESSMENT: Acute inferoposterior wall myocardial infarction. PLAN: The patient will continue current medications. His echocardiogram showed normal LV systolic function, home tomorrow. MMANAL / SURESHN: [id number] /
[2024-03-07 16:15] VITALS: RESP 18
--- NOTE | 2024-03-07 16:15 | P.PN ---
Subjective Progress Note Date: 03/07/24 Patient was seen for a follow-up. Patient is comfortably laying in the bed. Offers no complaints. No further strokelike symptoms. Objective - Vital Signs Vital signs: Vital Signs Temp 97.3 F L 03/07/24 08:00 Pulse 67 03/07/24 12:00 Resp 11 L 03/07/24 12:00 BP 117/83 03/07/24 12:00 Pulse Ox 95 03/07/24 12:00 FiO2 Intake & Output 03/06/24 03/07/24 03/07/24 18:59 06:59 18:59 Intake Total 480 500 Balance 480 500 Weight 87.3 kg 84.7 kg Intake: IV 80 Sodium Chloride 0.9% 1, 80 000 ml In Empty Bag 1 bag @ 1 ML/KG/HR 81.42 mls/ hr IV .[id number] [facility] Rx#: [id number] Oral 400 500 Other: Voiding Method Toilet Toilet Toilet # Voids 3 2 2 # Bowel Movements 1 ABP, PAP, CO, CI - Last Documented Arterial Blood Pressure 169/94 - Exam Patient's mental status, speech and language functions are normal. Cranial nerves are normal. Visual mejia are full. Face is symmetric. Tongue protrudes to midline. On muscle strength testing there is no pronator drift and the strength is normal in arms and legs. Sensations are equal with no neglect. No ataxia for [id number]-nd-rstm testing. - Labs CBC & Chem 7: 03/06/24 04:17 03/06/24 04:17 Assessment and Plan Assessment: * Probable TIA manifesting with aphasia, blurred vision and right-sided weakness, that resolved within 20 to 30 minutes. His symptoms have completely resolved, and current NIH stroke scale is 0. * Acute [place] status post balloon angioplasty, and aspiration thrombectomy of circumflex. * History of TIA 2 years ago. * Hypertension * Hyperlipidemia * Diabetes, newly diagnosed * Coronary artery disease * Medication noncompliance. Patient stopped taking all medications "couple years ago". Plan: Patient symptoms have resolved. No clinical indication for MRI. Patient needs aggressive control of stroke risk factors and to start antipl atelet medications. 2-D echo revealed left ventricular EF 55 to 60%. Left ventricular cavity size is normal. Normal left ventricular wall thickness. No obvious regional wall motion abnormalities. Left and right atrium not well-visualized. No MR. CTA head and neck showed: Patent head and neck CTA. Mild atherosclerotic disease at the carotid bifurcation/proximal ICA without hemodynamically si gnificant stenosis. No dissection or pseudoaneurysm. No vascular occlusion or stenosis. Fasting a.m. lipid panel cholesterol 245, LDL 176, HDL 57, triglycerides 56. Agree with starting high intensity statins with Lipitor 80 mg. Hemoglobin A1c 10.0. Recommend optimize control of diabetes to target A1c <7.0. Optimize control of blood pressure. Patient has stopped taking aspirin couple years ago. Patient started on aspirin 81 mg and Brilinta 90 mg twice daily. Duration of dual antiplatelets as per cardiology. However he needs to stay on aspirin 81 mg indefinitely. Neuro checks every 4 hours. Telemetry monitoring rule out any arrhythmia PT, OT, speech therapy DVT prophylaxis: Heparin 5000 units subcu every 12 hours Neurologically clear for discharge. Dr. Riggs covering neurology service over the weekend for any concerns.
[2024-03-07 16:20] LABS: Glucose,Whole Blood 210 mg/dL (70-110)
[2024-03-07 19:54] LABS: Glucose,Whole Blood 275 mg/dL (70-110)
[2024-03-07 23:38] VITALS: TEMP 97.8
[2024-03-08 05:55] LABS: Glucose,Whole Blood 162 mg/dL (70-110)
--- NOTE | 2024-03-08 06:42 | P.PN ---
Subjective Progress Note Date: 03/07/24 March 05, 2024 Patient underwent cardiac catheterization found to have stenosis of circumflex 99% which was stented and patient also has in-stent stenosis due to noncompliance with his medications. Extensive counseling was again provided regarding this a code stroke was called although there is no focal neurological deficits anyway patient underwent a stroke workup with CT of the head and CT angio of the head and neck and there is no evidence of stroke at that time. Patient is mildly hyponatremic echocardiogram is being obtained. Patient does not have any chest pain at this time March 06, 2024 63-year-old male with history of coronary disease stents in the past came in with severe nausea vomiting 10 x 10 chest pain pressure-like sensation and patient is found to have ST elevations in the inferior lateral leads in the circumflex territory. Patient was taken to [facility] immediately. I evaluate the patient before he went to [facility] patient has severe nausea vomiting. Patient does have reciprocal changes in leads V1 to V4. 03/07/2024 Patient is seen in follow-up today continues to be in the ICU although is a downgrade to 3 S. once a bed is available. Patient to continue on telemetry monitoring and monitoring for at least another 24 hours per cardiology with possible discharge planning in the next 24 hours. Patient reports to feeling well has been up and walking multiple times around the halls and denies any further chest pain or shortness of breath. Patient is afebrile with no reports of nausea or vomiting noted. Patient is status post angioplasty of the circumflex. Review of systems: Constitutional: No reports of fatigue, fever, or chills Cardiovascular: No reports of chest pain or palpitations Respiratory: No reports of shortness of breath or cough GI: No reports of nausea, vomiting, or diarrhea : No reports of dysuria or retention Neurovascular: No reports of weakness or numbness All medications have been reviewed PHYSICAL EXAMINATION: GENERAL: The patient is alert and oriented x3, patient is up and walking the halls, well-developed, elderly appearing HEENT: Pupils are round and equally reacting to light. EOMI. No scleral icterus. No conjunctival pallor. Normocephalic, atraumatic. No pharyngeal erythema. No thyromegaly. CARDIOVASCULAR: S1 and S2 muffled PULMONARY: Chest is clear to auscultation, no wheezing or crackles. ABDOMEN: Soft, obese, nontender, nondistended, normoactive bowel sounds. No palpable organomegaly. MUSCULOSKELETAL: No joint swelling or deformity. EXTREMITIES: No cyanosis, clubbing, or pedal edema. NEUROLOGICAL: Gross neurological examination did not reveal any focal deficits. SKIN: No rashes. Assessment: -Inferolateral ST elevation myocardial infarction: Status post PTCA circumflex and there was in-stent stenosis counseling regarding compliance with medications was provided. -Code stroke, CVA ruled out no evidence of CVA -Coronary disease with stents in the past -Hyperlipidemia -Hypertension -Borderline diabetes mellitus, hemoglobin A1c is 10 patient will be started on metformin may benefit from Jardiance -DVT prophylaxis: On heparin and antiplatelet -GI prophylaxis -Full code Plan: Patient currently remains in the ICU although this is a downgrade to stepdown once a bed becomes available today Continue telemetry monitoring and monitor for any further arrhythmias Encouraged to increase activity as tolerated and frequent walking throughout the halls Patient instructed and educated to follow-up with primary care provider along with cardiology outpatient Educated on the importance of medication compliance with lifestyle modification changes Most likely patient will be discharged in the next 24 hours once cleared by cardiology. The impression and plan of care has been dictated by Ladonna Soria, Nurse Practitioner as directed. Dr. Syl MD I have performed a history and examination and MDM of this patient, discussed the same with the dictator, and agree with the dictator's assessment and plan as written ,documented as a scribe. Based on total visit time, I have performed more than 50% of the visit. Objective - Vital Signs Vital signs: Vital Signs Temp 97.3 F L 03/07/24 08:00 Pulse 85 03/07/24 08:00 Resp 16 03/07/24 08:00 BP 134/92 03/07/24 08:00 Pulse Ox 95 03/07/24 08:00 FiO2 Intake & Output 03/06/24 03/07/24 03/07/24 18:59 06:59 18:59 Intake Total 480 500 Balance 480 500 Weight 87.3 kg 84.7 kg Intake: IV 80 Sodium Chloride 0.9% 1, 80 000 ml In Empty Bag 1 bag @ 1 ML/KG/HR 81.42 mls/ hr IV .[id number] FARHEEN Rx#: [id number] Oral 400 500 Other: Voiding Method Toilet Toilet Toilet # Voids 3 2 2 # Bowel Movements 1 ABP, PAP, CO, CI - Last Documented Arterial Blood Pressure 169/94 - Labs CBC & Chem 7: 03/06/24 04:17 03/06/24 04:17
[2024-03-08 07:51] LABS: African American GFR (CKD) 79 (>60 ml/min/1.73 sqM); Non-African American GFR(CKD) 68 (>60 ml/min/1.73 sqM)
[2024-03-08 10:13] VITALS: BP 129/79; PULSE 77
--- NOTE | 2024-03-08 11:05 | P.PN ---
Subjective HISTORY OF PRESENT ILLNESS: This is a 63-year-old male with a past medical history significant for coronary artery disease with previous stenting x 4, hypertension, hyperlipidemia, and borderline diabetes. Patient follows with a sandwich machine operator in [place]. We have been asked to see the patient in consultation for STEMI. Patient examined at the bedside in the emergency room. Patient was brought to the hospital via EMS with a chief complaint of chest pain. The patient reports midsternal chest pain with radiation down his left arm. He also reports nausea and is having episodes of emesis during examination. He continues to report his pain 06/05. The patient does report he has a history of stenting back in 2017. He states he had 2 stent s placed at that time and then 2 weeks later he required an additional 2 stents to be placed. He does report that he had a cardiac catheterization performed last year but he did not require any intervention at that time. He is a non- smoker. EKG revealed ST elevation in inferior lateral leads with reciprocal changes. 03/08/2024 Patient is status postcardiac catheterization with PTCA of the mid circumflex into OM1. Patient examined this morning at bedside. Patient denies chest pain or pressure. He denies shortness of breath. He has been up ambulating. Vital signs are stable. PHYSICAL EXAM: VITAL SIGNS: Reviewed. GENERAL: Well-developed in no acute distress. HEENT: Head is normocephalic. Pupils are equal, round. Sclerae anicteric. Mucous membranes of the mouth are moist. Neck supple. No JVD or thyromegaly LUNGS: Respirations even and unlabored. Lungs essentially clear to auscultation bilaterally. HEART: Regular rate and rhythm. S1 and S2 heard. ABDOMEN: Soft. Nondistended. Nontender. EXTREMITIES: Normal range of motion. No clubbing or cyanosis. Peripheral pulses intact. No lower extremity edema NEUROLOGIC: Awake and alert. Oriented x 3. ASSESSMENT: Inferolateral STEMI, status post angioplasty of circumflex into OM1 Coronary artery disease with previous stenting x 4, most recently in 2017 Hypertension Hyperlipidemia Borderline diabetes, per patient PLAN: Continue dual antiplatelet therapy with aspirin and Brilinta for 12 months Continue high intensity statin. LDL goal less than 70 Continue additional cardiac medications Medication compliance reinforced with patient Patient may be discharged home today from a cardiac standpoint Patient to follow-up postdischarge with his sandwich machine operator in [place] Nurse practitioner note has been reviewed by physician. Signing provider agrees with the documented findings, assessment, and plan of care documented by [facility] as a scribe. Objective - Vital Signs Vital signs: Vital Signs Temp 97.8 F 03/07/24 20:15 Pulse 77 03/08/24 08:30 Resp 18 03/08/24 08:30 BP 129/79 03/08/24 08:30 Pulse Ox 97 03/08/24 08:30 FiO2 Intake & Output 03/07/24 03/08/24 03/08/24 18:59 06:59 18:59 Intake Total 1040 Balance 1040 Intake: Oral 1040 Other: Voiding Method Toilet Toilet Toilet # Voids 1 2 ABP, PAP, CO, CI - Last Documented Arterial Blood Pressure 169/94 - Labs CBC & Chem 7: 03/06/24 04:17 03/08/24 06:50 Labs: Abnormal Lab Results - Last 24 Hours (Table) 03/07/24 03/07/24 03/08/24 Range/Units 16:15 19:52 05:54 POC Glucose (mg/dL) 210 H 275 H 162 H (70-110) mg/dL
--- NOTE | 2024-03-10 16:00 | P.DS ---
Providers Date of admission: 03/05/24 12:50 Attending physician: Erik Streeter Consults: 03/05/24 12:49 Consult Physician Stat Consulting Provider: Gray Campbell Consult Reason/Comments: STEMI Do you want consulting provider notified?: Already Contacted 03/05/24 15:42 Consult Physician Routine Consulting Provider: [facility] Consult Reason/Comments: Post Interventional Patient Do you want consulting provider notified?: Already Contacted 03/05/24 21:42 Consult Physician Routine Consulting Provider: Soy White Consult Reason/Comments: stroke like symptoms-resolved Do you want consulting provider notified?: Yes Primary care physician: Stated None Hospital Course: Final Diagnosis -Inferolateral ST elevation myocardial infarction: Status post PTCA circumflex and there was in-stent stenosis -Code stroke, CVA ruled out no evidence of CVA -Coronary disease with stents in the past -Hyperlipidemia -Hypertension -Borderline diabetes mellitus, hemoglobin A1c is 10 patient will be started on metformin may benefit from Jardiance Discharge Disposition Stable for discharge home. Patient counseled importance of medication compliance. Discharged on aspirin Brilinta, losartan, metformin, atorvastatin, metoprolol and he is also given a prescription for sublingual nitroglycerin as needed. Patient recommended to follow-up with his known paper machine operator in 1 week as well as his primary care provider. Patient states that he is in the process of moving back to [place] but he is advised to follow-up on his most recent family office in the next week on discharge. He is agreeing to this plan. Hospital Course 63-year-old male with history of coronary disease stents in the past came in with severe nausea vomiting 10 x 10 chest pain pressure-like sensation and patient is found to have ST elevations in the inferior lateral leads in the circumflex territory. Patient was taken to [facility] immediately. I evaluate the patient before he went to [facility] patient has severe nausea vomiting. Patient does have reciprocal changes in leads V1 to V4. Patient underwent cardiac catheterization found to have stenosis of circumflex 99% which was stented and patient also has in-stent stenosis due to noncompliance with his medications. Extensive counseling was again provided regarding this a code stroke was called although there is no focal neurological deficits anyway henry ent underwent a stroke workup with CT of the head and CT angio of the head and neck and there is no evidence of stroke at that time. Patient is mildly hyponatremic. Echocardiogram comes back showing ejection fraction of 55 to 60% with no mitral regurgitation no tricuspid regurgitation and no pericardial effusion. Patient history of medical noncompliance. He states that he was feeling well when off of all diabetic and other heart medications. He has been resumed on metformin and recommended to adjust his diet accordingly as his hemoglobin A1c was found to be 10. Patient was monitored overnight post PCI and is not having any chest pain any shortness of breath no dizziness or lightheadedness. He has been up ambulating without difficulty. He has been cleared by cardiology and will be discharged home. Please see medication reconciliation for a list of current medications. Thank you for allowing us to participate in the care of this patient. The impression and plan of care has been dictated by Kari Hunt, Nurse Practitioner as directed. Dr. Syl MD I have performed a history and physical examination and medical decision making of this patient, discussed the same with the dictator, and agree with the dictators assessment and plan as written, documented as a scribe. Based on total visit time, I have performed more than 50% of this visit. Patient Condition at Discharge: Fair Plan - Discharge Summary Discharge Rx Participant: Yes New Discharge Prescriptions: New Aspirin 81 mg PO DAILY #30 tab Ticagrelor [Brilinta] 90 mg PO BID #60 tab Losartan [Cozaar] 25 mg PO DAILY #30 tab Nitroglycerin Sl Tabs [Nitrostat] 0.4 mg SUBLINGUAL Q5M PRN #20 tab PRN Reason: Chest Pain metFORMIN HCL 500 mg PO BID 30 Days #60 tablet Atorvastatin [Lipitor] 80 mg PO HS #30 tab Metoprolol Tartrate [Lopressor] 25 mg PO BID #60 tab Discharge Medication List Aspirin 81 mg PO DAILY #30 tab 03/08/24 [Rx] Atorvastatin [Lipitor] 80 mg PO HS #30 tab 03/08/24 [Rx] Losartan [Cozaar] 25 mg PO DAILY #30 tab 03/08/24 [Rx] Metoprolol Tartrate [Lopressor] 25 mg PO BID #60 tab 03/08/24 [Rx] Nitroglycerin Sl Tabs [Nitrostat] 0.4 mg SUBLINGUAL Q5M PRN #20 tab 03/08/24 [Rx] Ticagrelor [Brilinta] 90 mg PO BID #60 tab 07/13/24 [Rx] metFORMIN HCL 500 mg PO BID 30 Days #60 tablet 03/08/24 [Rx] Follow up Appointment(s)/Referral(s): Cem Rosario DO [STAFF PHYSICIAN] - 1 Week None,Stated [Primary Care Provider] - 1-2 days Activity/Diet/Wound Care/Special Instructions: Activity limited until follow-up Follow-up with primary care provider this week Follow-up with cardiology outpatient Continue heart healthy diabetic diet Recommend monitoring blood sugars ACHS and keep a diary of all readings to bring with you to your primary care provider Hemoglobin A1c is 10 and may need insulin. Please discuss with your doctor and you will be started on metformin 500 mg twice daily on discharge Discharge Disposition: HOME SELF-CARE
== END 2024-03-08 11:49 | disposition home or self-care (01) | DRG 271 ==
LOC: EC 12:44 → 2SICU 12:50 → 3SCARD 03-07 13:39
PROVIDERS: ADMIT Internal Medicine; ATTEND Internal Medicine
PROC: 4A023N7 Measurement of Cardiac Sampling and Pressure, Left Heart, Percutaneous Approach (ICD-10-PCS; 2024-03-05)
PROC: B2111ZZ Fluoroscopy of Multiple Coronary Arteries using Low Osmolar Contrast (ICD-10-PCS; 2024-03-05)
PROC: X2CY3T7 Extirpation of Matter from Great Vessel using Computer-aided Mechanical Aspiration, Percutaneous Approach, New Technology Group 7 (ICD-10-PCS; principal; 2024-03-05 12:49)
PROC: 02703ZZ Dilation of Coronary Artery, One Artery, Percutaneous Approach (ICD-10-PCS; 2024-03-05 12:49)
PROC: B240ZZ3 Ultrasonography of Single Coronary Artery, Intravascular (ICD-10-PCS; 2024-03-05 12:49)
DX: I21.19 ST elevation (STEMI) myocardial infarction involving other coronary artery of inferior wall (principal); E87.1 Hypo-osmolality and hyponatremia; T82.855A Stenosis of coronary artery stent, initial encounter; R47.01 Aphasia; E11.9 Type 2 diabetes mellitus without complications; E78.5 Hyperlipidemia, unspecified; H54.7 Unspecified visual loss; I10 Essential (primary) hypertension; I25.10 Atherosclerotic heart disease of native coronary artery without angina pectoris; I25.2 Old myocardial infarction; Z79.82 Long term (current) use of aspirin; Z86.73 Personal history of transient ischemic attack (TIA), and cerebral infarction without residual deficits; Z91.148 Patient's other noncompliance with medication regimen for other reason; Z91.199 Patient's noncompliance with other medical treatment and regimen due to unspecified reason; Z71.89 Other specified counseling
CPT/HCPCS: 70450; 70496; 70498; 80048; 80053; 80061; 82565; 83036; 83735; 84484; 85025; 85610; 85730; 92920; 92973; 93005; 93306; 93458; 96374; 96375; 99291